=== PATIENT | female | born 1945 | race Caucasian/White ===

== ENCOUNTER 2019-02-22 15:27 | Emergency (ER) | payer BC, MEDICARE ==
[2019-02-22 15:53] VITALS: BP 148/66; PULSE 71
--- NOTE | 2019-02-22 16:19 | EDM.PDOC ---
ED HPI GENERAL MEDICAL PROBLEM - General Chief Complaint: Genitourinary Problem Stated Complaint: BLADDER INFECTION Time Seen by Provider: 02/22/19 15:43 Source of Information: Reports: Patient History Limitations: Reports: No Limitations - History of Present Illness INITIAL COMMENTS - FREE TEXT/NARRATIVE: 73 y/o female presents with urinary frequency for one day. She denies dysuria, back pain, fever, chills, nausea and vomiting. She is otherwise healthy. Bladder Pain Score (Numeric/FACES): 3 - Related Data Allergies Allergy/AdvReac Type Severity Reaction Status Date / Time No Known Allergies Allergy Verified 02/22/19 15:56 Home Meds: Home Meds Simvastatin [Zocor] 20 mg PO BEDTIME 01/22/15 [History] diazePAM [Diazepam] 1 tab PO BEDTIME PRN 12/18/15 [History] Escitalopram [Lexapro] 1 tab PO DAILY 02/22/19 [History] valACYclovir HCl [valACYclovir] 1 tab PO ONETIME 02/22/19 [History] Past Medical History HEENT History: Reports: Hard of Hearing, Impaired Vision Cardiovascular History: Reports: High Cholesterol SCUBA DIVER History: Reports: Musculoskeletal History: Reports: Fracture Other Musculoskeletal History: wrist Psychiatric History: Reports: Anxiety, Depression - Infectious Disease History Infectious Disease History: Reports: Chicken Pox, Measles - Past Surgical History GI Surgical History: Reports: Colonoscopy Social & Family History - Tobacco Use Smoking Status *Q: Never Smoker Second Hand Smoke Exposure: No - Caffeine Use Caffeine Use: Reports: Coffee - Alcohol Use Days Per Week of Alcohol Use: 3 Number of Drinks Per Day: 3 Total Drinks Per Week: 9 - Recreational Drug Use Recreational Drug Use: No ED ROS GENERAL - Review of Systems Review Of Systems: See Below Constitutional: Denies: Fever, Chills, Diaphoresis GI/Abdominal: Reports: No Symptoms : Reports: Frequency. Denies: Dysuria, Flank Pain ED EXAM, RENAL/ - Physical Exam Exam: See Below Exam Limited By: No Limitations General Appearance: Alert, WD/WN, No Apparent Distress Back Exam: No: CVA Tenderness (R), CVA Tenderness (L) Skin Exam: Warm, Dry Course - Vital Signs Last Recorded V/S: Last Vital Signs Temp 37.0 C 02/22/19 16:05 Pulse 71 02/22/19 16:05 Resp 20 02/22/19 16:05 BP 148/66 H 02/22/19 16:05 Pulse Ox 96 02/22/19 16:05 - Orders/Labs/Meds Orders: Active Orders 24 hr Category Date Time Status CULTURE URINE [RM] Stat Lab 02/22/19 16:53 Ordered Labs: Laboratory Tests 02/22/19 Range/Units 16:13 Urine Color Yellow (YELLOW) Urine Appearance Slightly cloudy A (CLEAR) Urine pH 6.0 (5.0-8.0) Ur Specific Wal[place] 1.025 (1.008-1.030) Urine Protein Negative (NEGATIVE) mg/dL Urine Glucose (UA) Normal (NEGATIVE) mg/dL Urine Ketones Negative (NEGATIVE) mg/dL Urine Occult Blood Trace (NEGATIVE) Urine Nitrite Negative (NEGATIVE) Urine Bilirubin Negative (NEGATIVE) Urine Urobilinogen 0.2 (0.2-1.0) EU/dL Ur Leukocyte Esterase Negative (NEGATIVE) Urine RBC 5-10 H (0-5) Urine WBC 20-30 H (0-5) Ur Epithelial Cells Rare Amorphous Sediment Not seen Urine Bacteria Moderate Urine Mucus Not seen - Re-Assessments/Exams Free Text/Narrative Re-Assessment/Exam: 02/22/19 16:17 A history and exam were done. Urinalysis was sent to the lab and we await results. 02/22/19 16:59 She has pyuria, but neg nitrite and leukocyte estrace. She reports having recurrent UTI symptoms, so a UC was ordered. She was placed on SMZ/TMP DS 1 twice a day for 7 days. She will follow up with primary care if she has problems or concerns. Departure - Departure Time of Disposition: 16:50 Disposition: Home, Self-Care 01 Condition: Good Clinical Impression: Urinary tract infection - Discharge Information *PRESCRIPTION DRUG MONITORING PROGRAM REVIEWED*: Not Applicable *COPY OF PRESCRIPTION DRUG MONITORING REPORT IN PATIENT SHARON: Not Applicable ( UTI) Instructions: Cystogram, Clean Intermittent Catheterization, Male, Urinary Tract Infection, Adult Referrals: PCP,None [Primary Care Provider] - Forms: ED Department Discharge Additional Instructions: Take the antibiotic as prescribed. Drink plenty of fluids. Use sunscreen while on the antibiotic. Follow up with a primary care provider if you're have problems or return to the ER. - My Orders Last 24 Hours: My Active Orders 02/22/19 16:53 CULTURE URINE [RM] Stat - Assessment/Plan Last 24 Hours: My Active Orders 02/22/19 16:53 CULTURE URINE [RM] Stat
== END 2019-02-22 17:21 | disposition home or self-care (01) ==
LOC: JP.ED 15:27
DX: N39.0 Urinary tract infection, site not specified (principal); F41.9 Anxiety disorder, unspecified; F32.9 Major depressive disorder, single episode, unspecified; Z79.899 Other long term (current) drug therapy
CPT/HCPCS: 81001; 87086; 99283